=== PATIENT | male | born 1985 | race Caucasian/White ===

== ENCOUNTER 2017-09-20 06:55 | Observation (INO) | payer MEDICAID ==
[2017-09-20] MEDS: ONDANSETRON 4 MG INJ IV ×2 (07:26→13:07)
[2017-09-20] MEDS: morphine 4 MG/ML VIAL IV ×2 (07:26→09:56)
[2017-09-20] MEDS: SOD CHLORIDE 0.9% 1,000 ML IV ×3 (07:26→10:00)
[2017-09-20 07:40] LABS: ADD MAN DIFF? NO
[2017-09-20 07:42] LABS: BASOPHIL # 0.1 10^3/ul (0.0-0.1); BASOPHILS % 0.4 % (0.0-2.0); HEMATOCRIT 44.4 % (42.0-52.0); HEMOGLOBIN 15.9 g/dl (14.0-18.0); LYMPHOCYTES # 0.7 10^3/ul (0.8-2.9); LYMPHOCYTES % 4.4 % (15.0-51.0); MEAN CORPUSCULAR HEMOGLOBIN 29.7 pg (29.0-33.0); MEAN CORPUSCULAR HGB CONC 35.8 g/dl (32.0-37.0); MEAN PLATELET VOLUME 11.3 fl (7.4-10.4); MONOCYTE # 0.7 10^3/ul (0.3-0.9); MONOCYTES % 4.8 % (0.0-11.0); NEUTROPHIL # 13.8 10^3/ul (1.6-7.5); PLATELET COUNT 204 10^3/UL (140-415); RED BLOOD COUNT 5.35 10^6/ul (4.70-6.10); RED CELL DISTRIBUTION WIDTH 11.6 % (11.5-14.5)
[2017-09-20 07:42] LABS: WHITE BLOOD COUNT 15.3 10^3/ul (4.8-10.8)
[2017-09-20 08:05] LABS: INR 0.99; PARTIAL THROMBOPLASTIN TIME 29.2 Sec (25.0-35.0); PROTIME 13.2 Sec (11.9-14.9)
[2017-09-20 08:07] LABS: ADD UMIC NO; UR ASCORBIC ACID NEGATIVE (NEGATIVE); UR BILIRUBIN (Dip) NEGATIVE (NEGATIVE); UR BLOOD (Dip) NEGATIVE (NEGATIVE); UR CLARITY CLEAR (CLEAR); UR COLOR STRAW (YELLOW); UR GLUCOSE (Dip) NEGATIVE (NEGATIVE); UR KETONES (Dip) NEGATIVE (NEGATIVE); UR LEUKOCYTE ESTERASE (Dip) NEGATIVE Leu/ul (NEGATIVE); UR NITRITE (Dip) NEGATIVE (NEGATIVE); UR SPECIFIC GRAVITY (Dip) 1.004 (1.003-1.030); UR TOTAL PROTEIN (Dip) NEGATIVE (NEGATIVE); UR UROBILINOGEN (Dip) NEGATIVE (NEGATIVE)
[2017-09-20 08:09] LABS: ALANINE AMINOTRANSFERASE 46 IU/L (13-69); ALBUMIN 5.2 g/dl (3.3-4.9); ALBUMIN/GLOBULIN RATIO 1.52; ALKALINE PHOSPHATASE 107 IU/L (42-121); AMYLASE 71 U/L (11-123); ANION GAP 17 (8-16); ASPARTATE AMINO TRANSFERASE 25 IU/L (15-46); BILIRUBIN,INDIRECT 3.3 mg/dl (0-1.1); BILIRUBIN,TOTAL 3.3 mg/dl (0.2-1.3); BLOOD UREA NITROGEN 9 mg/dl (7-20); CALCIUM 9.8 mg/dl (8.4-10.2); CARBON DIOXIDE 26 mmol/L (21-31); CHLORIDE 100 mmol/L (97-110); CREATININE 0.62 mg/dl (0.61-1.24); GLUCOSE 127 mg/dl (70-220); LIPASE 49 U/L (23-300); POTASSIUM 3.9 mmol/L (3.5-5.1); SODIUM 139 mmol/L (135-144); TOTAL PROTEIN 8.6 g/dl (6.1-8.1)
[2017-09-20] MEDS: SOD CHLORIDE 0.9% 100 ML (08:33)
[2017-09-20] MEDS: IOHEXOL 300MG/ML 150 ML BTL (08:33)
[2017-09-20] MEDS ORDERED: ACETAMINOPHEN 325 MG TAB PO ×2 (10:00→19:30)
[2017-09-20] MEDS ORDERED: ONDANSETRON 4 MG INJ IV ×3 (10:00→20:30)
[2017-09-20] MEDS: ERTAPENEM SODIUM 1 GM in SOD CHLORIDE 0.9% 100 ML IVPB (10:14)
[2017-09-20] MEDS: HYDROmorphONE 1 MG/ML SYG IV (13:07)
[2017-09-20] MEDS: morphine 2 MG INJ IV (18:33)
[2017-09-20] MEDS ORDERED: PROPOFOL 20 ML (19:18)
[2017-09-20] MEDS ORDERED: ROCURONIUM 50 MG INJ (19:18)
[2017-09-20] MEDS ORDERED: MIDAZOLAM 1 MG/ML 2 ML INJ (19:18)
[2017-09-20] MEDS ORDERED: LIDOCAINE 1% (MDV) 20 ML INJ (19:18)
[2017-09-20] MEDS ORDERED: ACETAMINOPHEN 1000MG/100ML IV 100 ML (19:28)
[2017-09-20] MEDS ORDERED: HYDROCODONE/APAP (5/325) TAB PO (19:30)
[2017-09-20] MEDS ORDERED: morphine 2 MG INJ IV (19:30)
[2017-09-20] MEDS: LIDOCAINE 1%/EPI 30 ML INJ (19:36)
[2017-09-20] MEDS: BUPIVACAINE 0.25%/EPI (SDV) 30 ML INJ INJ (19:37)
[2017-09-20] MEDS ORDERED: DEXAMETHASONE 4 MG/ML 1 ML INJ (19:41)
[2017-09-20] MEDS ORDERED: ONDANSETRON 4 MG INJ (19:41)
[2017-09-20] MEDS ORDERED: ROPIVACAINE 0.5 % 30 ML VIAL (19:43)
[2017-09-20] MEDS ORDERED: SUGAMMADEX SODIUM 200 MG/2 ML VIAL IV (19:48)
[2017-09-20] MEDS ORDERED: KETOROLAC 30 MG INJ IV (20:30)
[2017-09-20] MEDS ORDERED: HYDROmorphONE (0.2 MG/ML) 10ML SYG IV ×2 (20:30)
[2017-09-20] MEDS ORDERED: PROCHLORPERAZINE 10 MG INJ IV (20:30)
[2017-09-20] MEDS: KETOROLAC 15 MG INJ IV (21:30)
[2017-09-20] MEDS: D5-NS + KCL 20 MEQ 1,000 ML IV (21:32)
[2017-09-21] MEDS: PIPER-TAZO 3.375 GM IV (PMX) 100 ML IVPB ×3 (00:37→13:18)
[2017-09-21] MEDS: KETOROLAC 15 MG INJ IV ×3 (02:02→14:21)
[2017-09-21] MEDS: D5-NS + KCL 20 MEQ 1,000 ML IV (06:00)
[2017-09-21] MEDS: ENOXAPARIN 40 MG/0.4 ML SYG SC (08:36)
== END 2017-09-21 15:55 | disposition home or self-care (01) ==
LOC: FTE 06:55 → MS2 10:01
DX: K35.80 Unspecified acute appendicitis (principal)
CPT/HCPCS: 36415; 44970; 74177; 80053; 81003; 82150; 83690; 85025; 85610; 85730; 88304; 96374; 96375; 96376; 99285-25